=== PATIENT | male | born 2000 | race Caucasian/White ===

== ENCOUNTER → 2020-09-30 11:19 | Outpatient (BNVA) | payer BC, OTHER, SELFPAY | PROVIDERS: Family Provider Family Medicine; PCP Family Medicine; Visit Provider Nurse Practitioner | DX: J02.9 Acute pharyngitis, unspecified (principal) | CPT/HCPCS: 87880 ==

== ENCOUNTER → 2020-11-02 17:10 | Outpatient (BNVA) | payer BC, SELFPAY | PROVIDERS: Family Provider Family Medicine; PCP Family Medicine; Visit Provider Registered Nurse Neonatal Intensive Care | DX: J02.0 Streptococcal pharyngitis (principal) | CPT/HCPCS: 87880 ==

== ENCOUNTER 2024-02-28 14:56 | Emergency (ER) | payer BC, SELFPAY ==
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
[2024-02-28 15:02] VITALS: BP 193/111; PULSE 100; RESP 20; TEMP 36.7; O2SAT 99; BMI 29.5
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
[2024-02-28] MEDS: ondansetron 2 mg/ML SDV 2 mL 4 MG IVP (15:16)
[2024-02-28] MEDS: HYDROmorphone 1 mg/mL INJ 1 mL IVP ×2 (15:16→16:12)
--- NOTE | 2024-02-28 15:28 | PC.PHAR ---
Mom says no maintenance drugs, just zyrtec and flonase prn.
[2024-02-28 16:00] VITALS: PULSE 79; O2SAT 97
[2024-02-28] MEDS: LORazepam 2 mg/mL INJ 1 mL 1 MG IVP (16:00)
[2024-02-28] MEDS: sodium chloride 0.9% 1,000 ML 999 ML IV (16:37)
[2024-02-28 16:44] LABS: Basophils # 0.1 10^3/uL (0.0-0.1); Basophils % 1.1 %; Eosinophils # 0.5 10^3/uL (0.0-0.8); Eosinophils % 5.4 %; Hematocrit 43.8 % (37-53); Lymphocytes # 1.7 10^3/uL (0.8-4.8); Lymphocytes % 17.8 %; Mean Corpuscular HGB Conc 33.8 g/dL (30-55); Mean Corpuscular Hemoglobin 29.8 pg (27-33); Mean Corpuscular Volume 88.3 fl (82-101); Mean Platelet Volume 9.8 fL (7.4-10.4); Monocytes # 0.6 10^3/uL (0.2-0.9); Neutrophils # 6.46 10^3/uL (1.8-7.7); Neutrophils % 69.4 %; Nucleated Red Blood Cells % 0 %; Platelet Count 223 10^3/cmm (157-399); Red Blood Count 4.96 10^6/uL (3.85-5.65); Red Cell Distribution Width 12.1 % (12.1-15.1); White Blood Count 9.31 10^3/uL (3.29-11.43)
[2024-02-28 17:02] LABS: Alanine Aminotransferase 49 U/L (0-41); Albumin Level 4.2 g/dL (3.5-5.2); Alkaline Phosphatase 50 U/L (40-130); Aspartate Amino Transferase 32 U/L (0-40); Blood Urea Nitrogen 14 mg/dL (6-20); Calcium 9.1 mg/dL (8.5-10.5); Carbon Dioxide 26 mmol/L (22-29); Chloride 102 mmol/L (98-107); Creatinine Clr Calc Pharmacy 183.3654; Globulin 2.8 g/dL (1.3-4.6); Glomerular Filtration Rate 118.8 mL/min (90-130); Glucose 101 mg/dL (65-115); Osmolality Calculated 287 mOsm/kg (285-295); Sodium 138 mmol/L (136-145); Total Bilirubin 0.2 mg/dL (0.15-1.2)
[2024-02-28 17:03] VITALS: BP 158/105; PULSE 73; O2SAT 100
[2024-02-28 17:04] LABS: Anion Gap 13.7 (5-19); Potassium 3.7 mmol/L (3.5-5.1)
[2024-02-28] MEDS: chlorhexidine gluconate 4% Btl 118 mL 1 APPLIC TOPICAL (17:16)
[2024-02-28] MEDS: ceFAZolin 2,000 mg SDV 2000 MG IVP (17:19)
[2024-02-28 17:30] VITALS: BP 148/70; PULSE 70; RESP 16; O2SAT 99
[2024-02-28] MEDS: tetracaine 0.5% Op Soln 4 mL Btl 1 DROP EYE-LEFT (17:36)
[2024-02-28] MEDS: tetracaine 0.5% Op Soln 4 mL Btl 1 DROP EYE-BOTH (17:36)
[2024-02-28] MEDS: fluorescein 1 mg Strip EYE-BOTH (17:41)
[2024-02-28 18:29] VITALS: BP 148/70; PULSE 70; RESP 18; O2SAT 99
== END 2024-02-28 18:03 | disposition home or self-care (01) ==
PROVIDERS: Emergency Provider Emergency Medicine; PCP Family Medicine
DX: T20.00XA Burn of unspecified degree of head, face, and neck, unspecified site, initial encounter (principal); S01.81XA Laceration without foreign body of other part of head, initial encounter; X58.XXXA Exposure to other specified factors, initial encounter
CPT/HCPCS: 12011; 70450; 70486; 71045; 73562; 80053; 85025; 96361; 96374; 96375; 96376; 99285; J0690; J1171; J2060; J2405; J7030